=== PATIENT | female | born 1985 | race Caucasian/White ===

== ENCOUNTER 2018-08-26 08:06 | Inpatient (IN) | payer OTHER ==
[~2018-08-26 08:06] MED LIST: Buffered Lidocaine 0.9% SYRIN* 5 ML/SYR SYRINGE INTRADERM ONE; Bupivacaine 0.25% W/EPI* 10 ML SDV ONE; Lactated Ringers 1000 ML Bag* 1,000 ML IV SCH
[2018-08-26] MEDS ORDERED: Methylene Blue 0.5 %* 50 MG/10 ML AMP IV ONE (08:14)
[2018-08-26] MEDS ORDERED: Heparin VIAL(*) 5000 UNITS/ML VIAL (FIVE THOUSAND) ONE (08:31)
[2018-08-26] MEDS ORDERED: ceFAZolin 1 GM ADVAN(*) 1 GM ADDV.VIAL IVPB ONE (08:32)
[2018-08-26] MEDS ORDERED: ceFAZolin 2 GM PREMIX in ORs 2 GM/50 ML BAG IVPB ONE (08:32)
[2018-08-26] MEDS ORDERED: Propofol* 10 MG/ML 20 ML BTL ONE (09:55)
[2018-08-26] MEDS ORDERED: Atracurium* 10 MG/ML 10 ML VIAL ONE (09:56)
[2018-08-26] MEDS ORDERED: Midazolam* 1 MG/ML 5 ML VIAL (5 MG) ONE (09:56)
[2018-08-26] MEDS ORDERED: fentaNYL* 50 MCG/ML 2 ML VIAL (100 MCG VIAL) ONE ×3 (09:56→13:26)
[2018-08-26] MEDS ORDERED: Bupivacaine 0.25% W/EPI* 10 ML SDV ONE (10:31)
[2018-08-26] MEDS ORDERED: Dexamethasone IV* 4 MG/ML 1 ML (4 MG) ONE (10:50)
--- NOTE | 2018-08-26 12:31 | OP ---
Operative Report - Blank - Operative Report Date of Operation: 08/26/18 Note: Brief Operative Note Preop Dx: Morbid obesity Postop Dx: same Procedure: Laparoscopic Juice en Y gastric bypass Anesthesia: GET Surgeon: Marv Clinical Nursing Assistant: CYDNEY Mix Fluids: 1000 ml RL EBL: < 50 ml Specimen: none Drains: none Findings: dictated
[2018-08-26] MEDS ORDERED: Acetaminophen ADULT LIQ* 650 MG/20.3 ML UDC PO PRN (12:32)
[2018-08-26] MEDS ORDERED: HYDROcodone/ACET. 7.5/325 LIQ* 15 ML UDC PO PRN (12:32)
[2018-08-26] MEDS ORDERED: Ondansetron INJ* 2 MG/ML VIAL IV PRN ×2 (12:32→12:54)
[2018-08-26] MEDS ORDERED: Albuterol HFA INHALER* 8 gm MDI INH PRN (12:35)
[2018-08-26] MEDS ORDERED: Scopolamine 1.5 mg* PATCH ONE (12:47)
[2018-08-26] MEDS ORDERED: HYDROmorphone INJ1* 1 MG/ML SYRINGE IV PRN (12:54)
[2018-08-26] MEDS ORDERED: DiMENhydriNATE IV* 50 MG/ML VIAL IV PUSH PRN (12:54)
[2018-08-26] MEDS ORDERED: Scopolamine 1.5 mg* PATCH TRANSDERM PRN (12:54)
[2018-08-26] MEDS ORDERED: fentaNYL* 50 MCG/ML 2 ML VIAL (100 MCG VIAL) IV PRN (12:54)
[2018-08-26] MEDS ORDERED: Naloxone* 0.4 MG/ML 1 ML VIAL IV PRN (12:54)
[2018-08-26] MEDS: Lactated Ringers 1000 ML Bag* 1,000 ML IV SCH ×2 (14:33→21:46)
[2018-08-26] MEDS: Ketorolac INJ* 30 MG/ML 1 ML VIAL IV PRN ×2 (15:03→22:00)
[2018-08-26] MEDS ORDERED: Glycopyrrolate IV* 0.2 MG/ML 1 ML VIAL ONE (16:12)
[2018-08-26] MEDS ORDERED: Ketorolac INJ* 30 MG/ML 1 ML VIAL ONE (16:12)
--- NOTE | 2018-08-26 20:49 | OP ---
CC: Kalyn Calloway NP; [facility]. * DATE OF OPERATION: 08/26/18 - ROOM #351 DATE OF : 85 SURGEON: Dr. Gunnar Fair. WORKERS COMPENSATION COORDINATOR: CYDNEY Lima. ANESTHESIOLOGIST: Dr. William. ANESTHESIA: General anesthesia. PRE-OP DIAGNOSES: Clinically severe obesity, obstructive sleep apnea. POST-OP DIAGNOSES: Clinically severe obesity, obstructive sleep apnea. OPERATIVE PROCEDURE: Laparoscopic Umga-tw-E-gastric bypass. ESTIMATED BLOOD LOSS: Minimal. IV FLUIDS: Crystalloid fluid 2 L given. SPECIMEN: None. DRAINS: None. COUNTS: Lap pad count and instrument count correct at end of the procedure. DESCRIPTION OF PROCEDURE: The patient was identified in the preoperative area, marked, consent was signed, and case was discussed briefly with her and her family member. She was taken to the operating room and placed on the operating table in the supine position. Preoperative antibiotics were given. Sequential devices were placed on bilateral lower extremities and general anesthesia was induced. The patient's abdomen was prepped and draped in standard surgical fashion and a time- out was performed. Folds of the umbilicus were elevated anteriorly and a Veress needle inserted into the abdominal cavity, which was then allowed to insufflate to a pressure of 15 mmHg. The patient tolerated the insufflation well. Stuart between the xiphoid and umbilicus, a 12 mm trocar was just inserted left of midline and laparoscope was inserted through this. There was no evidence of injury from the trocar insertion, which was an Optiview trocar. Veress needle was then removed and additional trocars were then placed in the following positions: a 12 mm and a 5 mm in the left upper quadrant; a 12 mm and a 5 mm in the right upper quadrant. Table was placed in reverse Trendelenburg. A Eric retractor was inserted through a subxiphoid incision and the liver, which was bulky; but homogeneous, was retracted anteriorly to the right. This exposed the gastroesophageal fat pad, which was grasped and retracted towards the right lower quadrant and blunt dissection was carried out to expose the left crura. Next, a retrogastric tunnel was made at the third crossing vessel along the lesser curvature. A 45-mm abdul BAM stapling device was fired across this and the pouch was completed with 2 additional 60 mm abdul BAM stapling devices. The pouch appeared in the appropriate sizing. We did place an Elizabeth 32-[place] tube into the pouch to evaluate this. Hemostasis was excellent and then attention was turned towards the small-bowel. The omentum was retracted superiorly and the ligament of Treitz identified in the standard fashion. This was grasped and we counted off approximately 50 cm. This would become the biliopancreatic limb. We made a window through the mesentery and with this grasped, we brought this up in apposition to the gastric pouch. There was no tension and the distal portion of this bowel was sutured to the lateral aspect of the stomach pouch. This would become the gastrojejunostomy. Over the Elizabeth tube, a gastrotomy was made of appropriate size and a corresponding enterotomy was made and the gastrojejunostomy was created with the 30 mm abdul BAM stable device, firing the entire staple load. The common defect was then reapproximated with 3-0 PDS suture in a running fashion starting superiorly and also inferiorly and tying them in the middle. Next, the window that had been made in the small-bowel mesentry was re- identified and the small-bowel was transacted with the 60 mm abdul BAM stapling device. Now, with the gastrojejunostomy created, we tested it with methylene blue, placing the Elizabeth tube easily through the anastomosis and clamping on the proximal Juice limb. Methylene blue dye test was performed in the standard fashion and was negative. The blue dye was then removed through the tube by the anesthesiologist. We looked at the backside of the anastomosis and it appeared intact, as did the anterior aspect. Hemostasis again was excellent and we then turned our attention to the biliopancreatic limb. This was run proximally to evaluate its placement and we could see that it was appropriate orientation and then turned our attention to the Juice limb. Approximately 80 cm was counted off on the Juice limb and this was brought in apposition to the biliopancreatic limb. Enterotomies were made in the standard fashion and a jejunojejunostomy was created with a 60 mm abdul BAM stapling device. The common defect was reapproximated with interrupted 2-0 silk sutures in a figure- of-eight fashion, closing the defect altogether and then we closed the mesenteric defect with a running 2-0 silk suture. The anastomosis appeared intact without any evidence of ischemia. Hemostasis was excellent. We reviewed the abdomen again and dropped the liver back down into its appropriate place by removing the Eric retractor. Hemostasis again was excellent. All intestines appeared in the appropriate orientation. The abdomen was allowed to collapse, trocars were removed under direct vision and all 6 skin incisions were reapproximated with 4-0 Monocryl subcuticular sutures, followed by Steri-Strips and sterile dressing. The patient tolerated the procedure well and was transferred to the PACU in stable condition. [id number]/[facility] #: [id number] [facility] MEDICAL CENTERCharito
[2018-08-26] MEDS: Famotidine IV* 10 MG/ML 2 ML (20 mg) IV SLOW PU SCH (21:46)
[2018-08-26] MEDS: Heparin VIAL(*) 5000 UNITS/ML VIAL (FIVE THOUSAND) SUBCUT SCH (21:49)
[2018-08-27] MEDS: Lactated Ringers 1000 ML Bag* 1,000 ML IV SCH ×2 (04:27→09:49)
[2018-08-27] MEDS: Ketorolac INJ* 30 MG/ML 1 ML VIAL IV PRN (05:39)
[2018-08-27] MEDS: Heparin VIAL(*) 5000 UNITS/ML VIAL (FIVE THOUSAND) SUBCUT SCH ×3 (05:41→21:55)
[2018-08-27] MEDS: Fluticasone NASAL SPRAY 50MCG* 16 gm SPRAY BTL BOTH NARES SCH (10:19)
[2018-08-27] MEDS: Famotidine IV* 10 MG/ML 2 ML (20 mg) IV SLOW PU SCH ×2 (10:19→21:55)
--- NOTE | 2018-08-27 11:02 | PN ---
Progress Note - Progress Note Date of Service: 08/27/18 Note: S: POD #1. Doing well. No problems reported. No N/V. Burping some; passed a little flatus. Ambulating. O: Vital Signs - 8 hr 08/27/18 08/27/18 04:09 07:53 Temperature 98.2 F 98.2 F Pulse Rate 67 64 Respiratory 17 15 Rate Blood Pressure 116/71 127/75 (mmHg) O2 Sat by Pulse 98 99 Oximetry Intake and Output Last 24 Hours 08/25/18 08/26/18 08/27/18 08/28/18 06:59 06:59 06:59 06:59 Intake Total 2140 808 Output Total 800 200 Balance 1340 608 Weight 269 lb 9.6 oz Intake: IV Fluids 0 808 CEFAZOLIN 3MG 50ML 50 LR 0 808 Oral 0 0 Output: Urine 800 200 Other: # Voids 1 Gen: appears comfortable, sitting up in chair Heart: reg Lungs: clear Abd: +BS; lap sites ok; soft; min tenderness UGI: (not yet done) A: s/p lap gastric bypass, doing well; UGI pend P: sue clear liquids once study is done; cont IVF for now
[2018-08-27] MEDS: D5W 1/2 NS KCl 20 Meq 1000 ML* 1,000 ML IV SCH ×2 (13:02→21:54)
[2018-08-28] MEDS: D5W 1/2 NS KCl 20 Meq 1000 ML* 1,000 ML IV SCH (05:49)
[2018-08-28] MEDS: Heparin VIAL(*) 5000 UNITS/ML VIAL (FIVE THOUSAND) SUBCUT SCH (05:49)
[2018-08-28] MEDS: Famotidine IV* 10 MG/ML 2 ML (20 mg) IV SLOW PU SCH (08:16)
[2018-08-28] MEDS: Fluticasone NASAL SPRAY 50MCG* 16 gm SPRAY BTL BOTH NARES SCH (08:16)
--- NOTE | 2018-08-28 09:39 | PN ---
Progress Note - Progress Note Date of Service: 08/28/18 Note: S: POD #2. No sig pain. Feels as though something gets "stuck" when she drinks- has not been able to get in more than 2 30ml cups per hr. O: Vital Signs - 8 hr 08/28/18 08/28/18 08/28/18 03:30 07:38 07:39 Temperature 98.4 F 98.1 F Pulse Rate 56 69 Respiratory 16 16 18 Rate Blood Pressure 140/89 132/86 (mmHg) O2 Sat by Pulse 99 97 97 Oximetry Intake and Output Last 24 Hours 08/26/18 08/27/18 08/28/18 08/29/18 06:59 06:59 06:59 06:59 Intake Total 2140 1442 Output Total 800 1900 900 Balance 1340 -458 -900 Weight 269 lb 9.6 oz Intake: IV Fluids 2140 1202 CEFAZOLIN 3MG 50ML 50 LR 2090 1202 Oral 0 240 Output: Urine 800 1900 900 Other: # Voids 1 Gen: appears comfortable Heart: reg Lungs: clear Abd: lap sites ok; outer dsgs removed; soft; subxiphoid incisional tenderness only A: s/p lap gastric bypass, doing well P: poss d/c later today if po intake adequate; will d/w Dr. Fair
[2018-08-28 12:24] VITALS: BP 133/88
--- NOTE | 2018-08-28 20:54 | DS ---
CC: Kalyn Calloway NP, [place] * DISCHARGE SUMMARY: DATE OF ADMISSION: 08/26/18 DATE OF DISCHARGE: 08/28/18 ATTENDING SURGEON: Dr. Gunnar Fair * (CYDNEY Lima, dictating). HOSPITAL COURSE: Please refer to admission history and physical and operative note for details. The patient was taken to the operating room on 08/26/18, at which time she underwent laparoscopic Juice-en-Y gastric bypass with Dr. Fair. Surgery and postoperative course have been unremarkable with gradual improvement in pain and tolerance of bariatric clear liquids. She was able to progress to adequate oral intake as of midday on the day of discharge. She has had little or no pain. We reviewed instructions regarding wound care, activity, and diet. She has a followup at the [facility] for next week. CYDNEY LIMA [id number]/[facility] #: [id number] MTDD
[2018-08-29] MEDS ORDERED: Scopolamine PATCH Remove* 1 NOTE MISC PATCH OFF ONE (12:55)
== END 2018-08-28 13:40 | disposition home or self-care (01) | DRG 621 ==
LOC: AA 08:06 → SSU 14:28
PROVIDERS: ADMIT Surgery; ATTEND Surgery
PROC: 0D164ZA Bypass Stomach to Jejunum, Percutaneous Endoscopic Approach (ICD-10-PCS; principal; 2018-08-26 10:00)
DX: E66.01 Morbid (severe) obesity due to excess calories (principal); J45.909 Unspecified asthma, uncomplicated; G47.33 Obstructive sleep apnea (adult) (pediatric); Z83.3 Family history of diabetes mellitus; Z68.42 Body mass index [BMI] 45.0-49.9, adult; Z82.3 Family history of stroke; Z82.49 Family history of ischemic heart disease and other diseases of the circulatory system; Z83.49 Family history of other endocrine, nutritional and metabolic diseases; Z85.828 Personal history of other malignant neoplasm of skin
CPT/HCPCS: 74246; 81025; A9270-GY; J0690; J1100; J1644; J1885; J2250; J2704; J3010